=== PATIENT | female | born 1955 | race Caucasian/White ===

== ENCOUNTER 2019-01-24 05:25 | Emergency (ER) | payer SELFPAY ==
[~2019-01-24] VITALS: Ht 160 cm; Wt 72.6 kg
[2019-01-24 05:38] VITALS: Ht 160 cm; Wt 72.6 kg
[2019-01-24 07:09] LABS: BASOPHIL % 0.5 % (0-2); PLATELET COUNT 128 x10^3mcL (130-400); RED CELL DISTRIBUTION WIDTH 13.4 % (11.5-14.5)
[2019-01-24 07:30] LABS: CALCIUM 9.1 mg/dL (8.5-10.1); CARBON DIOXIDE 22.9 mmol/L (21-32); CHLORIDE SERUM 101 mmol/L (98-107); CREATININE SERUM 0.7 mg/dL (0.6-1.0); GFR1 > 60 mL/min; GLUCOSE SERUM 200 mg/dL (74-106); POTASSIUM SERUM 3.4 mmol/L (3.5-5.1); SODIUM SERUM 135 mmol/L (136-145)
[2019-01-24 07:35] LABS: ALBUMIN 3.9 g/dL (3.4-5.0); ALKALINE PHOSPHATASE 76 U/L (46-116); ALT/SGPT 43 U/L (14-59); AST/SGOT 35 U/L (15-37); BILIRUBIN TOTAL 0.95 mg/dL (0.20-1.00); LIPASE 163 IU/L (73-393); TOTAL PROTEIN, SERUM 7.1 g/dL (6.4-8.2)
[2019-01-24 09:06] VITALS: BP 145/87
[2019-01-24 10:03] LABS: UA SPECIFIC GRAVITY 1.015 (1.005-1.035); microscopic required? YES; urine erythrocyte NEGATIVE (NEGATIVE)
== END 2019-01-24 10:02 | disposition home or self-care (01) ==
LOC: ED 05:25
PROVIDERS: Emergency Medicine
DX: N39.0 Urinary tract infection, site not specified (principal); K29.70 Gastritis, unspecified, without bleeding; R25.2 Cramp and spasm; E11.9 Type 2 diabetes mellitus without complications; E03.9 Hypothyroidism, unspecified
CPT/HCPCS: J1885; J2270; J2405; J7030; Q0162